=== PATIENT | female | born 1965 | race Caucasian/White ===

== ENCOUNTER 2024-03-01 09:51 | Outpatient (CLI) | payer BC ==
[2024-03-01 10:22] LABS: CHOL/HDL RATIO 3.4 (<4.4); CHOLESTEROL 195 mg/dL; HDL CHOLESTEROL 58 mg/dL; LDL CHOLESTEROL,CALCULATED 117 mg/dL; TRIGLYCERIDES 100 mg/dL; VLDL CHOLESTEROL 20 mg/dL
[2024-03-01 14:23] LABS: ESTIMATED AVERAGE GLUCOSE 123 mg/dL (70-100); HEMOGLOBIN A1c% 5.9 % (4.27-6.07)
== END 2024-03-01 09:52 | disposition home or self-care (01) ==
LOC: LAB 09:51
PROVIDERS: ATTEND Obstetrics & Gynecology
DX: N95.1 Menopausal and female climacteric states (principal)
CPT/HCPCS: 36415; 80061; 82670; 83036; 83721; 84403